=== PATIENT | male | born 1990 | race Caucasian/White ===

== ENCOUNTER 2018-06-02 02:20 | Emergency (ER) | payer SELFPAY ==
[~2018-06-02] VITALS: Ht 175.3 cm; Wt 83.9 kg
[2018-06-02] VITALS (8 sets, daily range): BP systolic 110–136; BP diastolic 70–86
[2018-06-02] MEDS ORDERED: ANTABUSE250 MG PO (02:27)
[2018-06-02] MEDS ORDERED: BUPROPION XL300 MG ORAL (02:27)
[2018-06-02] MEDS ORDERED: LEXAPRO10 MG ORAL (02:27)
[2018-06-02] MEDS ORDERED: Bacitracin Oint UD TOPIC ONE ×2 (02:30→03:50)
[2018-06-02] MEDS ORDERED: Tetanus/Diptheria/Pertussis Vaccine 0.5ml Syr IM ONE ×2 (02:30→03:49)
--- NOTE | 2018-06-02 03:01 | Emergency Room Report ---
History of Present Illness General Chief Complaint: Suicidal Source: Patient (Hector Cramer MD) Present Illness HPI Patient presents after cutting his wrists at a rehabilitation facility. He had to dissemble razor blade in order to cut his wrist. He's done this once before. He states these circumstances are different than previously. He did this to harm himself but states he is not suicidal at this time. He's been drinking alcohol. He stays at a sober living facility. He's not sure when his last tetanus shot was. He denies any numbness or weakness in his hands. Bleeding was controlled and minimal at the facility and he was transported by EMS here. No fevers, chills, NVD, headache, abdominal pain, dysuria, chest pain, dyspnea. Has been admitted psychiatrically in [place] in past. Has new job and is concerned to call them that he won't be able to attend tomorrow. (Hector Cramer MD) Allergies: Coded Allergies: No Known Allergies (Unverified , 06/02/18) Patient History Past Medical History: see triage record Social History: Reports: smoking, alcohol use, drug use Social History Narrative in sober living Reviewed Nursing Documentation: PMH: Agreed; PSxH: Agreed (Hector Cramer MD) Nursing Documentation-PMH History Of Psychiatric Problem: Yes - depression (Hector Cramer MD) Review of Systems All Other Systems: negative except mentioned in HPI (Hector Cramer MD) Physical Exam Vital Signs Date Time Temp Pulse Resp B/P (MAP) Pulse Ox O2 Delivery O2 Flow Rate FiO2 06/02/18 02:21 98.4 103 18 131/86 98 Room Air Sp02 EP Interpretation: reviewed, normal General Appearance: well appearing, no apparent distress, GCS 15 Head: normocephalic Eyes: bilateral eye PERRL, bilateral eye Scleral Injection ENT: moist mucus membranes Neck: supple Respiratory: lungs clear, normal breath sounds Cardiovascular #1: regular rate, rhythm Cardiovascular #2: 2+ radial (R) Gastrointestinal: normal inspection, normal bowel sounds, non tender, no mass, non-distended Musculoskeletal: back normal, gait/station normal, normal range of motion, other - tendon function bilateral hands full Neurologic: alert, oriented x3, motor strength/tone normal, DTRs symmetric, sensory intact, speech normal Psychiatric: no suicidal/homicidal ideation - now, depressed affect Suicide Risk Assessment: Suicidal Ideation: Yes - prior, but denies now Had intent to initiate attempt: Yes Pt's plan for suicide attempt: Yes Has means to complete attempt: Yes Skin: normal color, laceration - L index finger, superficial R wirst, L wrist with 2 deeper lacs < 0.5 cm (Hector Cramer MD) Procedures Laceration/Wound Repair Laceration/Wound Repair : Consent: Verbal Wound Location: upper extremity Wound Length (cm): 4 Wound Explored: clean Betadine Prep?: Yes Anesthesia: other - none Wound Debrided: none Wound Repaired With: Dermabond Sterile Dressing Applied?: Yes Patient Tolerated: Well Complications: None (Hector Cramer MD) Medical Decision Making Diagnostic Impression: Primary Impression: Suicidal behavior Qualified Codes: T14.91XA - Suicide attempt, initial encounter Additional Impressions: Wrist lacerations Alcohol intoxication Qualified Codes: F10.929 - Alcohol use, unspecified with intoxication, unspecified ER Course Patient presents after cutting his wrist. He denies suicidal ideation at this time. I differential includes wrist lacerations, suicide attempt, exacerbation of depression, impulsive behavior, substance abuse electrolyte abnormality amongst others. The patient will be evaluated with labs. He will be treated with IV hydration, tetanus and these lacerations will be evaluated to see if they need to be the surgically repaired. When he is so he is sober we may need to have a psychiatric evaluation. He is supposed to be on Wellbutrin and Trazodone, but is non-compliant and does not want to take these medications. Not hearing voices. "Everything is going well. I don't know why I did this." Labs with + alcohol. Tox negative. Lacerations repaired with Dermabond. Patient still depressed. Due to severity of injuries and lack of insight regarding event, need for psychiatric evaluation. Anxiety treated with Ativan. Contacted Dr. Rosales who will evaluate the patient. Signed out to Dr. Diane. Laboratory Tests Test 06/02/18 03:00 06/02/18 04:30 White Blood Count 7.2 K/UL (4.8-10.8) Red Blood Count 5.73 M/UL (4.70-6.10) Hemoglobin 16.7 G/DL (14.2-18.0) Hematocrit 48.8 % (42.0-52.0) Mean Corpuscular Volume 85 FL (80-99) Mean Corpuscular Hemoglobin 29.2 PG (27.0-31.0) Mean Corpuscular Hemoglobin Concent 34.3 G/DL (32.0-36.0) Red Cell Distribution Width 11.0 % (11.6-14.8) L Platelet Count 181 K/UL (150-450) Mean Platelet Volume 7.1 FL (6.5-10.1) Neutrophils (%) (Auto) 61.2 % (45.0-75.0) Lymphocytes (%) (Auto) 30.3 % (20.0-45.0) Monocytes (%) (Auto) 6.3 % (1.0-10.0) Eosinophils (%) (Auto) 1.0 % (0.0-3.0) Basophils (%) (Auto) 1.2 % (0.0-2.0) Sodium Level 141 MMOL/L (136-145) Potassium Level 3.5 MMOL/L (3.5-5.1) Chloride Level 104 MMOL/L (98-107) Carbon Dioxide Level 24 MMOL/L (21-32) Anion Gap 13 mmol/L (5-15) Blood Urea Nitrogen 11 mg/dL (7-18) Creatinine 0.9 MG/DL (0.55-1.30) Estimate Glomerular Filtration Rate > 60 mL/min (>60) Glucose Level 81 MG/DL (74-106) Calcium Level 9.0 MG/DL (8.5-10.1) Total Bilirubin 1.0 MG/DL (0.2-1.0) Aspartate Amino Transferase (AST) 23 U/L (15-37) Alanine Aminotransferase (ALT) 31 U/L (12-78) Alkaline Phosphatase 73 U/L (46-116) Total Protein 8.6 G/DL (6.4-8.2) H Albumin 4.3 G/DL (3.4-5.0) Globulin 4.3 g/dL Albumin/Globulin Ratio 1.0 (1.0-2.7) Salicylates Level 0.5 ug/mL (2.8-20) L Acetaminophen Level < 2 MCG/ML (10-30) L Serum Alcohol 206 mg/dL Urine Opiates Screen Negative (NEGATIVE) Urine Barbiturates Screen Negative (NEGATIVE) Phencyclidine (PCP) Screen Negative (NEGATIVE) Urine Amphetamines Screen Negative (NEGATIVE) Urine Benzodiazepines Screen Negative (NEGATIVE) Urine Cocaine Screen Negative (NEGATIVE) Urine Marijuana (THC) Screen Negative (NEGATIVE) (Hector Cramer MD) ER Course Dr. Rosales evaluated patient this afternoon. She recommended placement to psychiatric facility. Mr. Krueger was evaluated by mobile assessment team from [facility]. He has been placed on 5150 involuntary hold. Awaiting transfer to psychiatric facility. (Janeth Gomez MD) Rhythm Strip Diag. Results EP Interpretation: yes Rhythm: NSR, no PVC's, no ectopy (Hector Cramer MD) Last Vital Signs Date Time Temp Pulse Resp B/P (MAP) Pulse Ox O2 Delivery O2 Flow Rate FiO2 06/02/18 07:30 97.7 81 12 119/83 100 Room Air 06/02/18 06:51 99 Status: improved (Hector Cramer MD) Hector Cramer MD Jun 02, 2018 03:01 Janeth Gomez MD Jun 02, 2018 18:39
[2018-06-02 03:15] LABS: BASOPHILS % (AUTO) 1.2 % (0.0-2.0); HEMATOCRIT 48.8 % (42.0-52.0); HEMOGLOBIN 16.7 G/DL (14.2-18.0); LYMPHOCYTES % (AUTO) 30.3 % (20.0-45.0); MEAN CORPUSCULAR VOLUME 85 FL (80-99); MONOCYTES % (AUTO) 6.3 % (1.0-10.0); NEUTROPHILS % (AUTO) 61.2 % (45.0-75.0); PLATELET COUNT 181 K/UL (150-450); RED BLOOD COUNT 5.73 M/UL (4.70-6.10); WHITE BLOOD COUNT 7.2 K/UL (4.8-10.8)
[2018-06-02 03:26] LABS: ANION GAP 13 mmol/L (5-15); BLOOD UREA NITROGEN 11 mg/dL (7-18); CARBON DIOXIDE 24 MMOL/L (21-32); CHLORIDE 104 MMOL/L (98-107); CREATININE 0.9 MG/DL (0.55-1.30); POTASSIUM 3.5 MMOL/L (3.5-5.1); SODIUM 141 MMOL/L (136-145)
[2018-06-02 03:36] LABS: ALANINE AMINOTRANSFERASE 31 U/L (12-78); ALBUMIN 4.3 G/DL (3.4-5.0); ALKALINE PHOSPHATASE 73 U/L (46-116); ASPARTATE AMINO TRANSFERASE 23 U/L (15-37)
[2018-06-02] MEDS ORDERED: LORazepam Inj 2mg/ml 1ml IV ONE (07:45)
[2018-06-02] MEDS ORDERED: LORazepam Inj 2mg/ml 1ml ONE (08:09)
[2018-06-02] MEDS ORDERED: Acetaminophen 500mg (ES) tab ORAL ONE (11:00)
[2018-06-02] MEDS ORDERED: LORazepam 1mg tab ORAL ONE ×2 (12:00→18:45)
--- NOTE | 2018-06-02 18:42 | Emergency Room Report ---
History of Present Illness General Chief Complaint: Suicidal Source: Patient Present Illness Allergies: Coded Allergies: No Known Allergies (Unverified , 06/02/18) Nursing Documentation-[facility] Past Medical History: No History, Except For History Of Psychiatric Problem: Yes - depression Physical Exam Vital Signs Date Time Temp Pulse Resp B/P (MAP) Pulse Ox O2 Delivery O2 Flow Rate FiO2 06/02/18 02:21 98.4 103 18 131/86 98 Room Air 06/02/18 03:00 99 Medical Decision Making Diagnostic Impression: Primary Impression: Suicidal behavior Qualified Codes: T14.91XA - Suicide attempt, initial encounter Additional Impressions: Alcohol intoxication Qualified Codes: F10.929 - Alcohol use, unspecified with intoxication, unspecified Wrist lacerations ER Course Dr. Rosales evaluated patient. She recommended placement for psychiatric stabilization. Mr. Krueger was evaluated by psychiatric mobile assessment team from [facility]. He is currently on 5150 involuntary hold. Awaiting transfer to psychiatric facility. I have reviewed vital signs and labs. He is medically clear for psychiatric care. He did request medication for anxiety. I provided lorazepam by mouth. Last Vital Signs Date Time Temp Pulse Resp B/P (MAP) Pulse Ox O2 Delivery O2 Flow Rate FiO2 06/02/18 12:32 98.0 82 18 120/70 98 Room Air 06/02/18 06:51 99 Disposition: XFER TO PSYCH HOSP/UNIT Condition: Stable Referrals: NOT CHOSEN IPA/,REFERRING (PCP) Janeth Gomez MD Jun 02, 2018 18:42
[2018-06-02] MEDS ORDERED: TraZODone 100mg tab ORAL ONE (22:15)
[2018-06-02] MEDS ORDERED: DiphenhydrAMINE 50mg/ml Inj IVP ONE (23:15)
[2018-06-03 00:50] VITALS: BP 124/78
[2018-06-03 03:52] VITALS: BP 118/72
[2018-06-03 06:33] VITALS: BP 120/69
[2018-06-03] MEDS ORDERED: LORazepam 1mg tab ORAL ONE ×2 (08:15→14:15)
[2018-06-03 08:30] VITALS: BP 116/60
--- NOTE | 2018-06-03 13:21 | Emergency Room Report ---
History of Present Illness General Chief Complaint: Suicidal Source: Patient Present Illness Allergies: Coded Allergies: No Known Allergies (Unverified , 06/02/18) Nursing Documentation-[facility] Past Medical History: No History, Except For History Of Psychiatric Problem: Yes - depression Physical Exam Vital Signs Date Time Temp Pulse Resp B/P (MAP) Pulse Ox O2 Delivery O2 Flow Rate FiO2 06/02/18 02:21 98.4 103 18 131/86 98 Room Air 06/02/18 03:00 99 Medical Decision Making Diagnostic Impression: Primary Impression: Suicidal behavior Qualified Codes: T14.91XA - Suicide attempt, initial encounter Additional Impressions: Alcohol intoxication Qualified Codes: F10.929 - Alcohol use, unspecified with intoxication, unspecified Wrist lacerations ER Course This is a note regarding patient's stay during my shift Patient has had multiple presentations to the charge nurse desk Patient is asking why he has been here for so long Otherwise does not appear in any acute distress Patient does not have any other formal examination by myself other than visualization of his ambulation and discussions at the nursing staff Patient had verbalized some agitation to nursing and therefore Ativan was requested It appears the patient has received this during his stay and therefore an order was placed Attempts continued to have appropriate placement as the patient has been face on a 5150. Multiple faxes and attempts are being made for placement Last Vital Signs Date Time Temp Pulse Resp B/P (MAP) Pulse Ox O2 Delivery O2 Flow Rate FiO2 06/03/18 08:30 98.0 66 18 116/60 97 Room Air 66 06/02/18 06:51 99 Disposition: PSYCH HOSP/UNIT Condition: Stable Referrals: NOT CHOSEN NUSRAT/,REFERRING (PCP) Chilango Torres DO Jun 03, 2018 13:21
[2018-06-03 14:14] VITALS: BP 120/70
--- NOTE | 2018-06-03 14:30 | Consultation ---
DATE OF CONSULTATION: 06/02/2018 HISTORY OF PRESENT ILLNESS: This is a 27-year-old male, who has a history of alcohol dependence and personality disorder, who has been admitted from a sober living after he relapsed on alcohol. He was transferred to [facility] for further evaluation. The patient attempted suicide by cutting his left wrist. He received a few stitches due to severe bleeding. The patient was very irritable, sarcastic, defensive, and guarded. The patient stated that he has thoughts of dying on a daily basis. The patient wanted to go back to his sober living. The patient was a poor historian and was not answering any questions. He stated that he at one point house in [place], but not in [place]. He also [place] and stated that he would eventually return to [place]. PAST PSYCHIATRY HISTORY: Depression and cluster B personality disorder. No suicide attempts in the past, suicidal gestures in the past. He could not afford his medications. PAST MEDICAL HISTORY: None. ALLERGIES: No known drug allergies. SUBSTANCE ABUSE HISTORY: Significant for alcohol. No illicit drug use. MENTAL STATUS EXAMINATION: The patient is alert and oriented x4. Uncooperative with the examination. Mood was irritable. Affect was constricted. Congruent with mood. Thought process is linear. Thought content, positive for suicidal ideation. No psychotic symptoms. Insight and judgment were poor. ASSESSMENT: AXIS I: Alcohol dependence. AXIS II: Cluster B personality. AXIS III: None. AXIS IV: Low to moderate. AXIS V: 20. PLAN: 1. The patient will be transferred to psychiatric unit. He may not go back to his sober living as he was recently relapsed with suicide attempts. 2. The patient may need a higher level of care after discharge from the Psychiatry sober living. Samreen Rosales M.D. DR: PHILIP JOB#: [id number] CC:
[2018-06-03 15:35] VITALS: BP 120/70
== END 2018-06-03 15:56 ==
LOC: EDBD 02:20 → EMR 02:35
DX: T14.91XA Suicide attempt, initial encounter (principal); F32.9 Major depressive disorder, single episode, unspecified; F60.89 Other specific personality disorders; F10.20 Alcohol dependence, uncomplicated; F19.90 Other psychoactive substance use, unspecified, uncomplicated; F17.200 Nicotine dependence, unspecified, uncomplicated; Z23 Encounter for immunization; S61.512A Laceration without foreign body of left wrist, initial encounter; W26.8XXA Contact with other sharp object(s), not elsewhere classified, initial encounter; Y92.099 Unspecified place in other non-institutional residence as the place of occurrence of the external cause
CPT/HCPCS: 36415; 80053; 80307; 85025; 90471; 90715; 96374; 96375; 99285; G0168; G0480; J1200; 80329